=== PATIENT | male | born 1995 | race African-American/Black ===

== ENCOUNTER 2020-04-20 13:50 | Emergency (ER) | payer OTHER ==
[2020-04-20 14:02] VITALS: BP 136/85; PULSE 71; TEMP 97.8; BMI 20.2
== END 2020-04-20 15:14 | disposition home or self-care (01) ==
LOC: JERFT 13:50
PROC: 0VQS0ZZ Repair Penis, Open Approach (ICD-10-PCS; principal; 2020-04-20)
DX: S31.21XA Laceration without foreign body of penis, initial encounter (principal)
CPT/HCPCS: 99282-25